=== PATIENT | female | born 1940 | race Hispanic/Latino ===

== ENCOUNTER 2022-04-29 13:10 | Outpatient (CLI) | payer MEDICARE | END 2022-04-29 13:11 | disposition home or self-care (01) | LOC: CSHMAMMO 13:10 | PROVIDERS: ATTEND Nurse Practitioner Family | DX: Z12.31 Encounter for screening mammogram for malignant neoplasm of breast (principal) | CPT/HCPCS: 77063; 77067 ==

== ENCOUNTER 2022-09-11 07:55 | Outpatient (CLI) | payer MEDICARE, BC | END 2022-09-11 07:56 | disposition home or self-care (01) | LOC: CSHCT 07:55 | PROVIDERS: ATTEND Psychiatry & Neurology Neurology | DX: I63.9 Cerebral infarction, unspecified (principal) | CPT/HCPCS: 70450 ==

== ENCOUNTER 2023-08-07 09:13 | Outpatient (CLI) | payer BC, MEDICARE | END 2023-08-07 09:14 | disposition home or self-care (01) | LOC: CSHMAMMO 09:13 | PROVIDERS: ATTEND Obstetrics & Gynecology | DX: Z12.31 Encounter for screening mammogram for malignant neoplasm of breast (principal) | CPT/HCPCS: 77063; 77067 ==